=== PATIENT | female | born 2000 | race Caucasian/White ===

== ENCOUNTER 2023-08-15 14:31 | Observation (INO) | payer MEDICAID ==
[2023-08-15] MEDS ORDERED: PREN-96 PO (16:21)
== END 2023-08-15 16:30 | disposition home or self-care (01) ==
LOC: UNDOADMOB 14:31 → LDRP 14:31
PROVIDERS: ADMIT Obstetrics & Gynecology; ATTEND Obstetrics & Gynecology
DX: O36.8130 Decreased fetal movements, third trimester, not applicable or unspecified (principal); Z3A.37 37 weeks gestation of pregnancy
CPT/HCPCS: 59025; 76818; 81002; 94760; G0378

== ENCOUNTER 2023-09-13 11:15 | Observation (INO) | payer MEDICAID ==
[~2023-09-13] VITALS: Ht 167.6 cm; Wt 123.4 kg
[~2023-09-13 11:15] MED LIST: PREN-96 PO
[2023-09-13] MEDS: LACTATED RINGER'S 1,000 ML IV ONE (12:07)
== END 2023-09-13 14:02 | disposition home or self-care (01) ==
LOC: LDRP 11:15
PROVIDERS: ADMIT Obstetrics & Gynecology; ATTEND Obstetrics & Gynecology
DX: O36.8130 Decreased fetal movements, third trimester, not applicable or unspecified (principal); O26.893 Other specified pregnancy related conditions, third trimester; R10.9 Unspecified abdominal pain; R42 Dizziness and giddiness; Z3A.41 41 weeks gestation of pregnancy
CPT/HCPCS: 59025; 76805; 76818; 81002; 87081; 94760; 96360; 96361; G0378

== ENCOUNTER 2023-09-15 08:12 | Inpatient (IN) | payer MEDICAID ==
[~2023-09-15] VITALS: Ht 167.6 cm; Wt 122.5 kg
[2023-09-15] MEDS ORDERED: PENICILLIN G POT 5MIL/D5 50ML 50 ML IV ONE (11:00)
[2023-09-15] MEDS ORDERED: LIDOCAINE 2%HCL (LOCAL ANESTH.) INJ 20ML MDV IJ PRN (11:00)
[2023-09-15] MEDS: LACT. RINGERS/OXYTOCIN 20UNITS 500 ML IV ONE ×2 (11:00→11:30)
[2023-09-15] MEDS ORDERED: BUTORPHANOL TARTRATE 2 MG/1 ML VIAL IV PRN ×2 (11:00)
[2023-09-15] MEDS: miSOPROStol 50 MCG per PRE-CUT 1/2 TAB PO PRN (12:11)
[2023-09-15] MEDS: LACTATED RINGER'S 1,000 ML IV SCH (12:15)
[2023-09-15 12:19] LABS: Basophils # (auto) 0 10 ^3/uL (0-0.2); Basophils % (auto) 0.4 % (0.0-2.0); Eosinophils # (auto) 0 10 ^3/uL (0-0.8); Eosinophils % (auto) 0.5 % (0.0-7.0); Hematocrit 37.5 % (36.0-46.0); Hemoglobin 12.6 g/dL (12.2-16.2); Lymphocytes # (auto) 1.8 10 ^3/uL (0.4-5.4); Lymphocytes % (auto) 22.5 % (10.0-50.0); Mean Corpuscular Hemoglobin 30.2 pg (28.0-32.0); Mean Corpuscular Hgb Conc. 33.7 g/dL (32.0-36.0); Mean Corpuscular Volume 89.4 fL (80.0-100.0); Monocytes # (auto) 0.5 10 ^3/uL (0-1.3); Monocytes % (auto) 5.8 % (0.0-12.0); Neutrophils # (auto) 5.7 10 ^3/uL (1.6-8.6); Neutrophils % (auto) 70.8 % (37.0-80.0); Red Blood Cells 4.19 10^6/uL (4.0-5.20); Red Cell Distribution Width 14.3 % (11.8-14.3); White Blood Cell 8.1 10^3/uL (4.4-10.8)
[2023-09-15 12:35] LABS: INR 0.97 (0.9-1.15); Partial Thromboplastin Time 25.9 SEC (24.5-34.5); Prothrombin Time 10.2 sec (9.3-11.8)
[2023-09-15 12:36] LABS: Alanine Aminotransferase 11 U/L (7-40); Albumin 3.6 g/dL (3.2-4.8); Alkaline Phosphatase 103 U/L (46-116); Anion Gap 8 (5-15); Aspartate Aminotransferase 14 U/L (13-40); BUN/Creatinine Ratio 11.4 (10.0-20.0); Blood Urea Nitrogen 5 mg/dL (9-23); Calcium 8.9 mg/dL (8.5-10.1); Carbon Dioxide 23 mmol/L (20-30); Chloride 105 mmol/L (98-107); Glucose 81 mg/dL (74-106); Potassium 3.8 mmol/L (3.5-5.1); Sodium 136 mmol/L (136-145)
[2023-09-15 12:37] LABS: Bilirubin, Total 0.3 mg/dL (0.2-1.0); Total Protein 5.9 g/dL (5.7-8.2)
[2023-09-15 12:57] LABS: Amphetamine Screen, Urine Neg (NEGATIVE); Barbiturate Scree,Urine Neg (NEGATIVE); Benzodiazephine Screen, Urine Neg (NEGATIVE); Cannabinoid Screen, Urine Neg (NEGATIVE); Cocaine Screen, Urine Neg (NEGATIVE); Opiate Scree,Urine Neg (NEGATIVE); Phencyclidine Screen, Urine Neg (NEGATIVE)
[2023-09-15 13:14] LABS: Urine Bacteria FEW /hpf (None Seen); Urine Blood 2+ /uL (Negative); Urine Clarity Turbid (Clear); Urine Color Yellow (Yellow); Urine Mucus FEW (None Seen); Urine Protein, UAD TRACE (Negative); Urine Specific Gravity 1.019 (1.001-1.035); Urine Urobilinogen Normal (Negative); Urine WBC 12 /hpf (0 - 5); Urine pH 7.5 (5.0-9.0)
[2023-09-15] MEDS ORDERED: PENICILLIN G POTASSIUM 2,500,000 UNITS in D5W 5% 50 ML IV SCH (15:00)
[2023-09-15] MEDS: PHISODERM TOP SOLN 240ML BTL TOP PRN (22:12)
[2023-09-15] MEDS: DERMOPLAST 60ML BOTTLE TOP PRN (22:12)
[2023-09-15] MEDS: WITCH HAZEL-GLYCERIN PAD TOP PRN (22:12)
[2023-09-16] VITALS (24 sets, daily range): BP systolic 92–133; BP diastolic 45–102; PULSE 59–119; RESP 18–22; TEMP 98–98.7; O2SAT 95–100
[2023-09-16] MEDS: ePHEDrine SULFATE 50 MG/ML AMP IV ONE (00:15)
[2023-09-16] MEDS: Lidocaine W-Epinephrine 1.5%-1:200,000 INJ 10ml Vial IJ ONE (00:15)
[2023-09-16] MEDS: LACTATED RINGER'S 500 ML IV ONE (00:15)
[2023-09-16] MEDS: NALOXONE HCL 0.4 MG/ML VIAL IV ONE (00:15)
[2023-09-16] MEDS: LIDOCAINE HCL 2 %PF INJ 10ML AMP IJ ONE (00:15)
[2023-09-16] MEDS: fentaNYL CITRATE 100 MCG/2 ML VL IV ONE (00:51)
[2023-09-16] MEDS ORDERED: LACT. RINGERS/OXYTOCIN 20UNITS 1,000 ML IV SCH ×2 (01:00→05:30)
[2023-09-16] MEDS: ROPIVACAINE HCL 200 ML ONE (01:12)
[2023-09-16] MEDS ORDERED: SODIUM CHLORIDE 0.9% 1,000 ML IUPC SCH (03:30)
[2023-09-16] MEDS: SODIUM CHLORIDE 0.9% 300 ML IUPC ONE (03:30)
[2023-09-16] MEDS: TERBUTALINE SULFATE 1 MG/ML 1ML VIAL SC PRN (03:35)
[2023-09-16] MEDS: LACTATED RINGER'S 1,000 ML IV ONE (03:45)
[2023-09-16] MEDS ORDERED: fentaNYL CITRATE 100 MCG/2 ML VL ONE (03:58)
[2023-09-16] MEDS ORDERED: MORPHINE SULF PF 5 MG/10 ML VIAL ONE (03:58)
[2023-09-16] MEDS: ceFAZolin 2 GM/D5W50ml 50 ML IV ONE (03:58)
[2023-09-16] MEDS ORDERED: LIDOCAINE 2% (LOCAL ANESTH.) PF 5ml SDV ONE (03:59)
[2023-09-16] MEDS ORDERED: ePHEDrine SULFATE 50 MG/ML AMP ONE (03:59)
[2023-09-16] MEDS ORDERED: GLYCOPYRROLATE 0.2 MG/ML 1ML VIAL ONE (03:59)
[2023-09-16] MEDS ORDERED: ONDANSETRON HCL 4 MG/2 ML VIAL ONE (03:59)
[2023-09-16] MEDS: LIDOCAINE 2% (LOCAL ANESTH.) PF 5ml SDV ONE (04:06)
[2023-09-16] MEDS ORDERED: CEPH500C PO (05:28)
[2023-09-16] MEDS ORDERED: IBUP-1456 PO (05:28)
[2023-09-16] MEDS ORDERED: HYDR-4902 PO (05:28)
[2023-09-16] MEDS ORDERED: ONDANSETRON HCL 4 MG/2 ML VIAL IV PRN (05:30)
[2023-09-16] MEDS ORDERED: NALOXONE HCL 0.4 MG/ML VIAL IV PRN (05:30)
[2023-09-16] MEDS ORDERED: HYDROcodone-ACET 5/325MG TAB PO PRN (05:30)
[2023-09-16] MEDS ORDERED: diphenhdrAMINE HCL 50 MG/1 ML VL IV PRN (05:30)
[2023-09-16] MEDS ORDERED: DexAMETHasone SOD PHOS 10MG/1ML VIAL INJ IV PRN (05:30)
[2023-09-16] MEDS: KETOROLAC TROMETH 30 MG/ML 1ML VIAL IV PRN (05:40)
[2023-09-16] MEDS: KETOROLAC TROMETH 30 MG/ML 1ML VIAL ONE (05:40)
[2023-09-16 08:06] LABS: RPR Non Reactive (Non Reactive)
[2023-09-16] MEDS: LACTATED RINGER'S 1,000 ML IV SCH (09:14)
[2023-09-16] MEDS: ceFAZolin 1GM/50ML 50 ML IV SCH (12:04)
[2023-09-16 18:29] LABS: Basophils # (auto) 0 10 ^3/uL (0-0.2); Basophils % (auto) 0.4 % (0.0-2.0); Eosinophils # (auto) 0 10 ^3/uL (0-0.8); Eosinophils % (auto) 0.2 % (0.0-7.0); Hematocrit 35.8 % (36.0-46.0); Lymphocytes # (auto) 2.1 10 ^3/uL (0.4-5.4); Lymphocytes % (auto) 24.8 % (10.0-50.0); Mean Corpuscular Hemoglobin 29.5 pg (28.0-32.0); Mean Corpuscular Hgb Conc. 33.4 g/dL (32.0-36.0); Mean Corpuscular Volume 88.5 fL (80.0-100.0); Monocytes # (auto) 0.5 10 ^3/uL (0-1.3); Monocytes % (auto) 5.7 % (0.0-12.0); Neutrophils # (auto) 5.9 10 ^3/uL (1.6-8.6); Neutrophils % (auto) 68.9 % (37.0-80.0); Red Blood Cells 4.05 10^6/uL (4.0-5.20); Red Cell Distribution Width 14.5 % (11.8-14.3); White Blood Cell 8.6 10^3/uL (4.4-10.8)
[2023-09-16] MEDS: ACETAMINOPHEN IV 1000 MG/100ML (10MG/ML) IV PRN (19:23)
[2023-09-17] VITALS (10 sets, daily range): BP systolic 98–132; BP diastolic 54–89; PULSE 68–81; RESP 18–20; TEMP 97.8–98.4; O2SAT 94–98
[2023-09-17] MEDS: KETOROLAC TROMETH 30 MG/ML 1ML VIAL IV PRN (00:17)
[2023-09-17 07:18] LABS: Basophils # (auto) 0 10 ^3/uL (0-0.2); Basophils % (auto) 0.2 % (0.0-2.0); Eosinophils # (auto) 0 10 ^3/uL (0-0.8); Eosinophils % (auto) 0.4 % (0.0-7.0); Hematocrit 32.4 % (36.0-46.0); Lymphocytes # (auto) 1.9 10 ^3/uL (0.4-5.4); Lymphocytes % (auto) 24.2 % (10.0-50.0); Mean Corpuscular Hemoglobin 30.4 pg (28.0-32.0); Mean Corpuscular Hgb Conc. 34.1 g/dL (32.0-36.0); Mean Corpuscular Volume 89.2 fL (80.0-100.0); Monocytes # (auto) 0.5 10 ^3/uL (0-1.3); Monocytes % (auto) 6.2 % (0.0-12.0); Neutrophils # (auto) 5.5 10 ^3/uL (1.6-8.6); Red Blood Cells 3.63 10^6/uL (4.0-5.20); White Blood Cell 7.9 10^3/uL (4.4-10.8)
[2023-09-17] MEDS: HYDROcodone-ACET 10/325MG TAB PO PRN (14:09)
[2023-09-17 19:06] LABS: Treponema pallidum Ab (FTA-Ab) Non Reactive (Non Reactive)
[2023-09-17] MEDS: DOCUSATE SOD 100 MG CAP PO SCH (23:00)
[2023-09-17] MEDS: SIMETHICONE 80 MG CHEWABLE TABLET PO SCH (23:01)
[2023-09-17] MEDS: IBUPROFEN 800 MG TAB PO PRN (23:01)
[2023-09-18] MEDS ORDERED: PREN-96 PO (02:22)
[2023-09-18] MEDS ORDERED: DOCU-265 PO (02:22)
[2023-09-18 03:00] VITALS: BP 111/58; PULSE 63; RESP 20; TEMP 98; O2SAT 98
[2023-09-18] MEDS ORDERED: SIMETHICONE 80 MG CHEWABLE TABLET PO SCH (06:00)
[2023-09-18 06:30] VITALS: BP 109/62; PULSE 69; RESP 18; TEMP 97.9; O2SAT 97
[2023-09-18] MEDS ORDERED: DOCUSATE SOD 100 MG CAP PO SCH (10:00)
[2023-09-18] MEDS: TETANUS-DIPTH-ACEL PERTUSSIS 0.5ML SYR Tdap IM ONE (10:41)
== END 2023-09-18 11:20 | disposition home or self-care (01) | DRG 539 ==
LOC: LDRP 08:12 → UNDOADMOB 08:12 → LDRP 08:29 → OBSVTOIN 10:29 → LDRP 10:30
PROVIDERS: ADMIT Obstetrics & Gynecology; ATTEND Obstetrics & Gynecology
PROC: 0UB50ZZ Excision of Right Fallopian Tube, Open Approach (ICD-10-PCS; 2023-09-16)
PROC: 10D00Z1 Extraction of Products of Conception, Low, Open Approach (ICD-10-PCS; principal; 2023-09-16 04:17)
DX: O48.0 Post-term pregnancy (principal); N83.291 Other ovarian cyst, right side; O61.9 Failed induction of labor, unspecified; O34.83 Maternal care for other abnormalities of pelvic organs, third trimester; O99.214 Obesity complicating childbirth; O76 Abnormality in fetal heart rate and rhythm complicating labor and delivery; N83.8 Other noninflammatory disorders of ovary, fallopian tube and broad ligament; Z37.0 Single live birth; Z3A.41 41 weeks gestation of pregnancy
CPT/HCPCS: 36415; 59025; 62282; 76818; 80053; 80307; 81001; 81002; 83036; 85025; 85610; 85730; 86592; 86850; 86900; 86901; 90715; 94760; 94762; 96360; 96361; 96372; 96374; G0378; J0131; J1885; J2001; J2405; J2590